=== PATIENT | female | born 1980 | race Caucasian/White ===

== ENCOUNTER 2017-06-13 18:40 | Emergency (ER) | payer OTHER ==
[~2017-06-13] VITALS: Ht 170.2 cm; Wt 68.9 kg
[~2017-06-13 18:40] MED LIST: ANTIVERT25 MG PO; BENTYL10 MG PO; OMEPRAZOLE40 M1 PO; RANITIDINE HCL150 MG PO; ZOFRAN4 MG PO
[2017-06-13 21:25] LABS: HEMATOCRIT 44.9 % (36.0-46.0); MCH 29.7 PG (29.0-34.0); MCHC 33.9 G/DL (30.0-36.0); MCV 87.9 FL (83-99); MEAN PLAT.VOLUME 8.8 uM^3 (9.5-12.4); PLATELET COUNT 269 K/uL (156-360); RBC DIS.WIDTH-CV 12.6 % (11.8-14.6); RBC DIS.WIDTH-SD 41.1 % (39-53); RED BLOOD COUNT 5.11 M/uL (3.80-5.20); WHITE BLOOD COUNT 12.2 K/uL (4.1-10.2)
[2017-06-13 21:40] LABS: CHLORIDE 102 mEq/L (99-109); POTASSIUM 4.4 mEq/L (3.7-5.4); SODIUM 140 mEq/L (136-147)
[2017-06-13 21:41] LABS: GLUCOSE 86 mg/dL (70-99)
[2017-06-13 21:43] LABS: ANION GAP 13 MEQ/L (2-14)
[2017-06-13 21:45] LABS: GFR ESTIMATE (CALCULATED) > 59 mL/min/
[2017-06-13 21:46] LABS: UREA NITROGEN (BUN) 18 mg/dL (9-23)
[2017-06-13 21:55] LABS: QUANTITATIVE HCG < 4.0 MIU/ML; TROP-I INTERPRETATION NEGATIVE; TROPONIN-I < 0.01 ng/mL (0.0-0.30)
[2017-06-13] MEDS ORDERED: MOTRIN800 MG PO (22:49)
[2017-06-13] MEDS ORDERED: FLEXERIL5 MG PO (22:49)
[2017-06-13] MEDS ORDERED: NEURONTIN300 MG PO (22:49)
[2017-06-13 23:12] VITALS: BP 118/79
== END 2017-06-13 23:14 | disposition home or self-care (01) ==
LOC: EME 18:40 → RME 18:40
PROVIDERS: Physician Assistant
DX: G44.209 Tension-type headache, unspecified, not intractable (principal); R07.9 Chest pain, unspecified; K21.9 Gastro-esophageal reflux disease without esophagitis
CPT/HCPCS: 80048; 84484; 84702; 85027; 93005; 99281; 99284